=== PATIENT | male | born 1975 | race African-American/Black ===

== ENCOUNTER 2016-09-02 05:12 | Emergency (ER) | payer OTHER ==
[~2016-09-02] VITALS: Ht 185.4 cm; Wt 113.4 kg
[~2016-09-02 05:12] MED LIST: ENDOCET 325 MG-1 TA1 PO; MEDROL4 MG PO; TYLENOL #31 TAB PO; XARELTO20 MG PO
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
--- NOTE | 2016-09-02 06:40 | CT SCAN REPORT ---
EXAMINATION: NONCONTRAST HEAD CT NONCONTRAST MAXILLOFACIAL CT NONCONTRAST NECK CT INDICATION INFORMATION: Trauma COMPARISON: None TECHNIQUE: Separate noncontrast CT examinations of the head, maxillofacial bones, and neck were performed. Coronal and sagittal images were created for each examination at the technologist workstation. FINDINGS: Head: No evidence of acute intracranial hemorrhage. No extra-axial fluid collections are seen. Wilde-white differentiation is maintained without evidence of acute territorial infarction. Ventricles are of normal size without evidence of hydrocephalus. No mass effect or midline shift. The mastoid air cells are well aerated. Mild frontal soft tissue swelling, left greater than right. No acute calvarial fractures are seen. Maxillofacial: Mild right lateral infraorbital soft tissue swelling. No acute maxillofacial fractures are seen. The pterygoid plates are intact. The lamina papyracea are intact. Zygomatic arches are intact. The orbital rims are intact. The frontal, maxillary, ethmoid, and sphenoid sinuses are well aerated. The uncinate process is normal bilaterally. The infundibula and middle meati are patent. The nasal septum is midline. The mandibular heads are well-seated in the condylar fossa. The orbits demonstrate a normal appearance bilaterally. The globes are intact, and there are no suspicious findings to suggest retrobulbar hemorrhage. Neck: The submandibular glands and parotid glands are symmetric. No lymphadenopathy. The larynx is unremarkable. The pharynx is unremarkable. The prevertebral soft tissues are unremarkable. The epiglottis is unremarkable. There is anatomic alignment of the vertebral bodies and posterior elements. Vertebral body heights and intervertebral disc spaces are maintained. The atlantoaxial and atlantooccipital articulations are intact. No evidence of acute fracture. No prevertebral soft tissue swelling. Visualized portions of the lung apices are unremarkable. The thyroid gland is unremarkable. IMPRESSION: 1. No acute intracranial findings. Mild frontal soft tissue swelling. 2. No acute maxillofacial fracture. Mild soft tissue swelling. 3. No acute findings of the neck soft tissues or cervical spine.
--- NOTE | 2016-09-02 06:41 | RADIOLOGY REPORT ---
EXAMINATION: XR KNEE, LEFT XR KNEE, RIGHT CLINICAL INFORMATION: Abrasions. Fall. Pain. COMPARISON: None TECHNIQUE: 2 views of each knee FINDINGS: Left knee: No fracture or subluxation. Compartmental joint spaces are maintained. No joint effusion. The soft tissues are unremarkable. Right knee: No fracture or subluxation. Compartmental joint spaces are maintained. No joint effusion. The soft tissues are unremarkable. IMPRESSION: No fracture or malalignment of either knee.
--- NOTE | 2016-09-02 06:42 | RADIOLOGY REPORT ---
EXAMINATION: XR WRIST, LEFT XR HAND, LEFT CLINICAL INFORMATION: Pain. Fall. COMPARISON: None TECHNIQUE: 3 views of the left wrist. 2 views of the left hand. FINDINGS: Left wrist: No fracture or dislocation. The carpal rows are appropriately aligned. Joint spaces are maintained. The soft tissues are unremarkable. Negative ulnar variance measuring 0.5 cm. Left hand: No fracture or dislocation. Alignment is anatomic. Joint spaces are maintained. The soft tissues are unremarkable. IMPRESSION: No acute osseous abnormality of the left hand or wrist.
--- NOTE | 2016-09-02 08:35 | ULTRASOUND REPORT ---
EXAMINATION: US TRIPLEX OF LOWER EXTREMITIES, BILATERAL CLINICAL INFORMATION: Bilateral lower extremity edema, tenderness and muscle cramps. COMPARISON: None. TECHNIQUE: Color-flow triplex imaging with spectral analysis and compression Doppler were performed on the lower extremities. FINDINGS: Respiratory variation, normal compression and augmented flow are noted throughout the lower extremities. The visualized common femoral vein, proximal greater saphenous vein, femoral vein, profunda femoral vein, popliteal vein and visualized mid calf venous segments show no evidence of deep venous thrombosis. There is no Pineda's cyst. IMPRESSION: Normal triplex scan without evidence of deep venous thrombosis involving the lower extremities.
[2016-09-02 09:01] VITALS: BP 130/78
== END 2016-09-02 09:04 ==
LOC: ERH 05:12
DX: S01.01XA Laceration without foreign body of scalp, initial encounter (principal); S09.90XA Unspecified injury of head, initial encounter; S00.33XA Contusion of nose, initial encounter; S60.812A Abrasion of left wrist, initial encounter; S80.211A Abrasion, right knee, initial encounter; S80.212A Abrasion, left knee, initial encounter; W19.XXXA Unspecified fall, initial encounter
CPT/HCPCS: 73110-LT; 73120-LT; 73560-LT; 73560-RT; 90471; 90714; 93970